=== PATIENT | male | born 2000 | race Caucasian/White ===

== ENCOUNTER 2022-12-09 14:40 | Emergency (ER) | payer OTHER, SELFPAY ==
[2022-12-09 14:48] VITALS: BP 125/62; PULSE 59; RESP 20; TEMP 37; O2SAT 99; BMI 26.4
--- NOTE | 2022-12-09 15:09 | CRLHL7_ITS ---
For Patients: As a result of the Century Cures Act, medical imaging exams and procedure reports are released immediately into your electronic medical record. You may view this report before your referring provider. If you have questions, please contact your health care provider. Indication: Pain. Blunt injury. Technique: Three view x-rays of the right wrist. Comparison: None available Findings: Normal alignment. No fractures are identified. No foreign bodies. Impression: Negative x-rays of the right wrist. Dictated by Car Stephens MD @ 12/09/2022 3:32:39 PM (Electronically Signed)
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
== END 2022-12-09 15:53 | disposition home or self-care (01) ==
PROVIDERS: Emergency Provider Internal Medicine
DX: S63.501A Unspecified sprain of right wrist, initial encounter (principal); W21.03XA Struck by baseball, initial encounter
CPT/HCPCS: 73110; 73130; 99283